=== PATIENT | female | born 1980 | race Caucasian/White ===

== ENCOUNTER 2018-02-15 16:42 | Emergency (ER) | payer MEDICAID ==
[~2018-02-15] VITALS: Ht 172.7 cm; Wt 65.8 kg
--- NOTE | 2018-02-15 16:42 | NUR ---
PT BIB [place] [facility] FOR PREBOOK
[2018-02-15 16:47] VITALS: BP 94/48
[2018-02-15 17:32] VITALS: BP 94/48
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
== END 2018-02-15 17:30 ==
LOC: MED 16:42
DX: Z02.89 Encounter for other administrative examinations (principal)
CPT/HCPCS: 99283

== ENCOUNTER 2021-04-13 03:35 | Emergency (ER) | payer MEDICAID ==
[~2021-04-13] VITALS: Ht 175.3 cm; Wt 72.6 kg
[2021-04-13 03:40] VITALS: BP 105/67
--- NOTE | 2021-04-13 03:46 | NUR ---
TO ROOM 4 VIA W/C
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
[2021-04-13] MEDS ORDERED: KETOROLAC 30 MG/ML VIAL IVP ONE (04:15)
[2021-04-13] MEDS ORDERED: NACL 0.9% 1,000 ML IV ONE (04:15)
[2021-04-13 04:33] LABS: APPEARANCE,URINE CLEAR (CLEAR); BILIRUBIN,URINE NEGATIVE (NEGATIVE); BLOOD, URINE NEGATIVE (NEGATIVE); COLOR,URINE YELLOW (YELLOW); LEUKOCYTE ESTERASE ,URINE NEGATIVE (NEGATIVE); NITRITE, URINE NEGATIVE (NEGATIVE); UGLUCOSE NEGATIVE (NEGATIVE)
--- NOTE | 2021-04-13 05:23 | NUR ---
PT IS SLEEPING, EYES CLOSED, OPENS TO SOUND. EQUAL RISE AND FALL OF CHEST WALL. VSS. PT IS IN STABLE CONDITION. ALL NEEDS MET. SIDE RAILS X2, BED LOCKED IN LOWEST POSITION.
[2021-04-13 05:51] LABS: BASOPHILS # (AUTO) 0.1 K/uL (0.00-0.22); BASOPHILS % (AUTO) 0.8 % (0.0-2.0); EOSINOPHILS # (AUTO) 0.2 K/uL (0-0.4); EOSINOPHILS % (AUTO) 2.2 % (0.0-4.0); HEMATOCRIT 33.7 % (36-48); HEMOGLOBIN 11.3 g/dL (12.0-16.0); LYMPHOCYTES # (AUTO) 0.6 K/uL (2.5-16.5); LYMPHOCYTES % (AUTO) 9.1 % (20.5-51.1); MEAN CORPUSCULAR HEMOGLOBIN 30 pg (27-31); MEAN CORPUSCULAR HGB CONC 34 g/dL (33-37); MEAN CORPUSCULAR VOLUME 87.6 fL (80-94); MONOCYTES # (AUTO) 0.6 K/uL (0.8-1.0); MONOCYTES % (AUTO) 8.5 % (1.7-9.3); NEUTROPHILS # (AUTO) 5.4 K/uL (1.8-7.7); NEUTROPHILS % (AUTO) 79.4 % (42.2-75.2); PLATELET COUNT (AUTO) 206 K/uL (140-450); RED BLOOD CELL COUNT(AUTO) 3.84 MIL/uL (4.20-5.40); RED CELL DISTRIBUTION WIDTH 12.2 % (11.6-13.7); WHITE BLOOD COUNT (AUTO) 6.7 K/uL (4.8-10.8)
[2021-04-13 06:11] LABS: ALBUMIN 2.5 g/dL (3.4-5.0); ANION GAP 12.9 (8-16); CARBON DIOXIDE 24.9 mmol/L (21-32); CREATININE 0.7 mg/dL (0.6-1.3); POTASSIUM 3.8 mmol/L (3.5-5.1); TOTAL BILIRUBIN 0.5 mg/dL (0.0-1.0)
[2021-04-13 07:23] VITALS: BP 93/58
--- NOTE | 2021-04-13 07:38 | NUR ---
Pt report given to CORINA WRAY. Transfer of care at this time.
[2021-04-13] MEDS ORDERED: NAPR-54 PO (08:31)
--- NOTE | 2021-04-13 09:07 | NUR ---
Patient discharged with v/s stable. Written and verbal after care instructions ABOUT POST-CONCUSSION SYNDROME given and explained. Patient alert, oriented and verbalized understanding of instructions. Ambulatory with steady gait. All questions addressed prior to discharge. ID band removed. Patient advised to follow up with PMD. Rx of NAPROXEN given. Patient educated on indication of medication including possible reaction and side effects. Opportunity to ask questions provided and answered.
--- NOTE | 2021-04-13 09:08 | NUR ---
PT GIVEN PACK OF LUNCH, BUS PASS AND HOMELESS PACKET. PT SIGNED HOMELESS WAIVER.
== END 2021-04-13 09:07 | disposition home or self-care (01) ==
LOC: MED 03:35
DX: F07.81 Postconcussional syndrome (principal); Z79.899 Other long term (current) drug therapy; Z98.890 Other specified postprocedural states
CPT/HCPCS: 36415; 70450; 80053; 81003; 85025; 96361; 96374; 99284; J1885

== ENCOUNTER 2022-03-23 11:25 | Emergency (ER) | payer MEDICAID ==
[~2022-03-23] VITALS: Ht 175.3 cm; Wt 87.1 kg
[~2022-03-23 11:25] MED LIST: NAPR-54 PO
[2022-03-23 11:34] VITALS: BP 97/48
--- NOTE | 2022-03-23 12:03 | NUR ---
PT AMB TO ER BED 8
--- NOTE | 2022-03-23 12:13 | NUR ---
MD CUENCA AT BEDSIDE FOR EVALUATION
[2022-03-23] MEDS: KETOROLAC 30 MG/ML VIAL IM ONE (12:30)
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
[2022-03-23] MEDS ORDERED: CYCL-711 PO (12:37)
--- NOTE | 2022-03-23 13:05 | NUR ---
Patient discharged with v/s stable. Written and verbal after care instructions FORMUSCLE PAIN AND DEGENERATIVE DISK DISEASE given and explained. Patient alert, oriented and verbalized understanding of instructions. Ambulatory with steady gait. All questions addressed prior to discharge. ID band removed. Patient advised to follow up with PMD. Rx of FLEXERIL given. Opportunity to ask questions provided and answered. PCP REFFERAL PROVIDED
--- NOTE | 2022-03-23 13:06 | NUR ---
Chart checked and completed. The patient's care was reviewed and supervised by Vanessa Argueta RN.
== END 2022-03-23 13:05 | disposition home or self-care (01) ==
LOC: MED 11:25
DX: M54.2 Cervicalgia (principal); M62.838 Other muscle spasm; Z79.899 Other long term (current) drug therapy
CPT/HCPCS: 81025; 96372; 99283; J1885

== ENCOUNTER 2022-06-02 10:49 | Emergency (ER) | payer MEDICAID ==
[~2022-06-02] VITALS: Ht 175.3 cm; Wt 89.8 kg
[~2022-06-02 10:49] MED LIST changes: +CYCL-711 PO
[2022-06-02 11:09] VITALS: BP 100/75
--- NOTE | 2022-06-02 11:27 | NUR ---
COVID, FLU SWABS DONE.
--- NOTE | 2022-06-02 11:31 | NUR ---
PT AMBULATED TO BED 12
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
[2022-06-02 12:10] LABS: BASOPHILS % (AUTO) 0.2 % (0.0-2.0); EOSINOPHILS % (AUTO) 0.1 % (0.0-4.0); HEMOGLOBIN 15.4 g/dL (12.0-16.0); LYMPHOCYTES # (AUTO) 0.7 K/uL (2.5-16.5); LYMPHOCYTES % (AUTO) 7.4 % (20.5-51.1); MEAN CORPUSCULAR HEMOGLOBIN 30 pg (27-31); MEAN CORPUSCULAR HGB CONC 34 g/dL (33-37); MEAN CORPUSCULAR VOLUME 89.1 fL (80-94); MONOCYTES # (AUTO) 0.4 K/uL (0.8-1.0); MONOCYTES % (AUTO) 4.4 % (1.7-9.3); NEUTROPHILS # (AUTO) 8.1 K/uL (1.8-7.7); NEUTROPHILS % (AUTO) 87.9 % (42.2-75.2); PLATELET COUNT (AUTO) 214 K/uL (140-450); RED BLOOD CELL COUNT(AUTO) 5.16 MIL/uL (4.20-5.40); RED CELL DISTRIBUTION WIDTH 13.1 % (11.6-13.7); WHITE BLOOD COUNT (AUTO) 9.2 K/uL (4.8-10.8)
[2022-06-02] MEDS ORDERED: MECLIZINE 25 MG TAB PO ONE (12:25)
[2022-06-02] MEDS ORDERED: KETOROLAC 30 MG/ML VIAL IM ONE (12:35)
[2022-06-02 12:36] LABS: APPEARANCE,URINE CLEAR (CLEAR); BILIRUBIN,URINE 1+ (NEGATIVE); BLOOD, URINE NEGATIVE (NEGATIVE); COLOR,URINE YELLOW (YELLOW); LEUKOCYTE ESTERASE ,URINE NEGATIVE (NEGATIVE); NITRITE, URINE NEGATIVE (NEGATIVE); UGLUCOSE NEGATIVE (NEGATIVE)
[2022-06-02 13:04] LABS: ANION GAP 10.8 (8-16); CARBON DIOXIDE 28.8 mmol/L (21-32); CREATININE 0.9 mg/dL (0.6-1.3); POTASSIUM 4.6 mmol/L (3.5-5.1); TOTAL BILIRUBIN 0.5 mg/dL (0.0-1.0)
[2022-06-02 13:13] LABS: RBC,URINE 0-5 /HPF (0-5)
[2022-06-02 13:14] LABS: WBC,URINE 0-5 /HPF (0-5)
[2022-06-02] MEDS ORDERED: MECL-303 PO (14:08)
[2022-06-02 14:29] VITALS: BP 116/72
--- NOTE | 2022-06-02 14:29 | NUR ---
Patient discharged with v/s stable. Written and verbal after care instructions given and explained. Patient alert, oriented and verbalized understanding of instructions. Ambulatory with steady gait. All questions addressed prior to discharge. ID band removed. Patient advised to follow up with PMD. Rx of antivert (sent) given. Patient educated on indication of medication including possible reaction and side effects. Opportunity to ask questions provided and answered. note given for long-term AND called tyler CARDOZO to excuse from phsycial activity 06/05/22
== END 2022-06-02 14:29 | disposition home or self-care (01) ==
LOC: MED 10:49
DX: R42 Dizziness and giddiness (principal); Z20.822 Contact with and (suspected) exposure to COVID-19; M79.10 Myalgia, unspecified site; R10.10 Upper abdominal pain, unspecified; J45.909 Unspecified asthma, uncomplicated; Z79.899 Other long term (current) drug therapy; Z98.890 Other specified postprocedural states
CPT/HCPCS: 36415; 71045; 80053; 81001; 81025; 84703; 85025; 87086; 87426; 87804; 96372; 99284; J1885; J8597